=== PATIENT | female | born 1965 | race Caucasian/White ===

== ENCOUNTER 2024-01-07 17:33 | Emergency (ER) | payer OTHER ==
[~2024-01-07] VITALS: Ht 170.2 cm; Wt 113.4 kg
[~2024-01-07 17:33] MED LIST: CLIN300 PO; HYDACE5 PO; Norco 5-325 Ta1 EACH PO; PENVK500 PO; PROM25 PO
[2024-01-07] MEDS ORDERED: FentaNYL Citrate 50 MCG/ML 2 ML Injection IM PRN (19:10)
[2024-01-07] MEDS ORDERED: RX Prepack 6 Tabs Oxycodone 5mg UD ONE (20:15)
[2024-01-07 20:20] VITALS: BP 154/97
== END 2024-01-07 20:28 | disposition home or self-care (01) ==
LOC: ER 17:33
DX: M16.11 Unilateral primary osteoarthritis, right hip (principal); Z88.1 Allergy status to other antibiotic agents; Z88.5 Allergy status to narcotic agent; X50.9XXA Other and unspecified overexertion or strenuous movements or postures, initial encounter
CPT/HCPCS: 73502; 99283-25; A9270

== ENCOUNTER → 2025-04-07 | Outpatient (CLI) | payer OTHER ==
[~2025-04-07] MED LIST changes: +ABILIFY MYCITE2 M2 PO; +ALBU90OI INH; +FUROSEMIDE20 MG PO; +IBUP200; +KLOR-CON 1010 ME4 PO; +SULFAMETHOXAZO1 EAC1 PO; +TRAZ50 PO
== END ==
LOC: LAB 18:12 → LAB SHORT 18:12
DX: L08.9 Local infection of the skin and subcutaneous tissue, unspecified (principal)
CPT/HCPCS: 87070; 87075; 87077; 87147; 87186; 87205